=== PATIENT | female | born 1980 | race Caucasian/White ===

== ENCOUNTER 2016-11-10 10:32 | Emergency (ER) | payer OTHER ==
[~2016-11-10] VITALS: Ht 170.2 cm; Wt 86.4 kg
[2016-11-10 10:40] VITALS: BP 127/56; PULSE 93; RESP 12; O2SAT 100
--- NOTE | 2016-11-10 10:41 | ED.REPORT ---
HPI-Headache Date of Service Nov 10, 2016 ED Provider: Shae Drake MD The patient is a 36 year old female w/ a hx of lupus who presents to the ED via EMS from due to a migraine, onset 2100 yesterday. She was taking a walk when the headache began and she was barely able to walk home. Her headache was a 10/ 10 at onset and is currently a 8/10. It is located on the left side of her head behind her eye and radiates into her neck and back of head. Associated symptoms include nausea, vomiting, blurred vision bilateral, extremity pain she attributes to lupus, and shakes. The patient is tearful and photophobic at the ED and states that she has, "never had a migraine like this before." She denies fevers and chills. Nursing Notes Stated Complaint: HEADACHE Chief Complaint: Neuro Symptoms/ Deficits Nursing Notes Reviewed: Yes Allergies: Coded Allergies: cephalexin (Verified Allergy, Unknown, 11/10/16) General Time Seen by MD: 10:40 Chief Complaint Migraine headache Hx Obtained From: Patient Arrived By: Ambulance Sudden in Onset?: Yes Onset Occurred: 13 - 16 hours ago Context of Onset: Exercise (walking) Symptom Duration: Since onset Location: : Frontal left: Occipital left Quality: Burning, Painful Radiation: : Neck, left lateral Severity: Current: Pain level 8 out of 10 Severity: Maximum: Pain level 10 out of 10 Associated with: Reports: Nausea, Vomiting, Weakness Recent Healthcare: Recent doctor visit, Recent hospitalization Similar Sx Previous: Yes Past Medical History Past Medical History migraines lupus Past Surgical History denies Smoking History Unknown if Ever Smoker Social History Other Social History: Local resident Ambulatory Status Independent Review of Systems Constitutional: Denies: Chills, Fever Eyes: Reports: Blurred bilateral, Denies: Photophobia GI: Reports: Nausea, Vomiting, Denies: Abdominal pain Musculoskeletal: Denies: Back pain, Extremity pain, Joint pain, Neck pain Neurologic: Reports: Headache, Shaking, Denies: Change LOC Complete sys rev & neg: except as marked. Cardiovascular: Denies: Chest pain Physical Exam Physical Exam Notes: Initial Vital Signs Vital Signs (First) Date Time Temp Pulse Resp B/P Pulse Ox O2 Delivery O2 Flow Rate FiO2 11/10/16 10:40 36.5 93 12 127/56 100 11/10/16 12:40 Room Air Initial VS: Reviewed, Vital signs normal General/Constitutional: Awake Distress / Hydration: Positive: Distress mild Behavior: Positive: Anxious, Tearful Head / Eyes: Normocephalic, PERRL, EOMI Neck: No meningismus, No swelling general neck discomfort to palpation Neurologic: Oriented X3, Speech NL, No motor deficits, CN II - XII intact normal finger to nose sensation and strength intact no knuckle rigidity Abdomen: Soft, Non-tender Skin: Atraumatic, Warm, Dry Back: Full range of motion, Non-tender, No midline vertebral tend Upper Extremity / MS: Atraumatic, Inspection NL, Full range of motion, No deformity Lower Extremity / Pelvis / MS: Atraumatic, Inspection NL, No deformity Interpretation & Diagnostics Lab Results Interpretation Result Diagram: 11/10/16 1130 11/10/16 1130 Test 11/10/16 11:30 White Blood Count 5.5th/mm3 (3.8-10.1) Red Blood Count 4.30mil/mm3 (3.90-5.20) Hemoglobin 13.1g/dL (12.0-15.6) Hematocrit 40.1% (35.0-46.0) Mean Corpuscular Volume 93.3fL (81-100) Mean Corpuscular Hemoglobin 30.5pg (27.0-35.0) Mean Corpuscular Hemoglobin Concent 32.7% (32.0-37.0) Red Cell Distribution Width 11.9% (12.3-15.4) Platelet Count 225bil/L (150-400) Neutrophils (%) (Auto) 58.9% (40-74) Lymphocytes (%) (Auto) 31.3% (14-46) Monocytes (%) (Auto) 7.6% (4-12) Eosinophils (%) (Auto) 1.8% (0-5) Basophils (%) (Auto) 0.4% (0-3) Prothrombin Time 10.1sec (8.1-12.5) Prothromb Time International Ratio 0.95ratio Sodium Level 140mEq/L (134-144) Potassium Level 4.9mEq/L (3.5-5.2) Chloride Level 106mEq/L (97-108) Carbon Dioxide Level 23mmol/L (18-29) Blood Urea Nitrogen 6mg/dL (6-20) Creatinine 0.52mg/dL (0.57-1.00) Estimat Glomerular Filtration Rate 193mL/min (>59) Glucose Level 91mg/dL (60-99) Calcium Level 9.3mg/dL (8.5-10.1) Magnesium Level 1.9mg/dL (1.6-2.6) Hold Lacy Top Tube Received (Received) CT Head Interpretation IMPRESSION: Negative head CT. No acute intracranial process is evident. Dictated by: Jesus Olsen M.D. on 11/10/2016 at 11:29 Approved by: Jesus Olsen M.D. on 11/10/2016 at 11:30 Study: Head CT no contrast Interpretation / Wet Read by: Interpret - Radiologist Re-Eval/Medical Decision Med Decision/Clinical Course The patient presents with a new kind of headache, she has bilateral foot burning which she thinks may be related to her lupus. She had some onset of a severe headache, she is neurologically intact. CT was obtained and is negative , and residual lumbar puncture the patient refused. Risks and benefits were explained to her, she has had one performed prior to blood patch. I did explain to her that this could be serious if she did however she said she wanted to take that chance. As far as her headache she was given Compazine and Toradol with significant improvement in her headache. Additional differential diagnoses considered were intracranial hemorrhage, subarachnoid hemorrhage, meningitis, migraine, intracranial mass. Re-Evaluation/Progress : Time of Eval: 13:41 )( Patient Status: Condition improved, Pain improved Re-Evaluation/Progress Note: Pt rechecked. Her pain is now at a 5/10. She refuses a lumbar puncture. Risks were explained. Pt understands and still does not wish to proceed with the puncture. She requests anti-anxiety medicine. Counseled Regarding: Diagnosis, Lab results, Need for follow-up, When/why to return to ED Discharge & Departure Impression: Primary Impression: Migraine Migraine type: unspecified Status migrainosus presence: without status migrainosus Intractability: not intractable Qualified Code: G43.909 - Migraine, unspecified, not intractable, without status migrainosus Disposition: Home Discharge Condition All VS Reviewed: Yes Condition: Stable Patient Instructions: Migraine Headache (ED) Additional Instructions: Thank you for entrusting us with your care today. There were no emergent causes for your symptoms. Use Tylenol and Ibuprofen as needed for pain. Return to the Emergency Department if you experience any new or worsening symptoms. I hope you feel better soon! Referrals: Jia Bland MD (PCP) Scribe Attestation Portion of this note were transcribed by Blaire Fontaine. I, Dr. Drake , personally performed the history, physical exam, and medical decision-making: I reviewed and confirmed the accuracy for the information in the transcribed note. Signed by: myah Yoo, 11/10/16 1500 copies to: Jia Bland MD, Jena M MD Nov 10, 2016 10:41 Blaire Fontaine Nov 10, 2016 10:55
[2016-11-10] MEDS ORDERED: 0.9% Sodium Chloride 1,000 ML IV ONE (11:00)
[2016-11-10] MEDS ORDERED: ProchlorPERazine 5 mg/mL 2 mL Inj IVPUSH ONE (11:00)
[2016-11-10 11:38] LABS: BASOPHILS % (AUTO) 0.4 % (0-3); EOSINOPHILS % (AUTO) 1.8 % (0-5); MONOCYTES % (AUTO) 7.6 % (4-12); Mean Corpuscular Hemoglobin 30.5 pg (27.0-35.0); Mean Corpuscular Volume 93.3 fL (81-100); NEUTROPHILS % (AUTO) 58.9 % (40-74); Platelet Count 225 bil/L (150-400)
[2016-11-10 11:39] VITALS: BP 120/56; PULSE 82; RESP 16; O2SAT 100
[2016-11-10 11:53] LABS: INR 0.95 ratio
[2016-11-10 12:01] LABS: Magnesium 1.9 mg/dL (1.6-2.6)
--- NOTE | 2016-11-10 12:31 | DRSVH ---
PROCEDURE: CT BRAIN WITHOUT CONTRAST ([id number]) INDICATIONS: new headache TECHNIQUE: Noncontrast 4.5 mm thick angled axial sections acquired from the foramen magnum to the vertex, with c oronal reformats. COMPARISON: [facility], CT, BRAIN W/O CONTRAST, 01/29/2010, 12:15. FINDINGS: Image quality: Diagnostic. CSF spaces: Basal cisterns are patent. No extra-axial fluid collections. Ventricles are normal in size and shape. Brain: No midline shift. No intracranial masses or hemorrhage. Santiago-white matter interface is norm al. Skull and face: Calvarium and visualized facial bones are intact, without suspicious lesions. Sinuses: Visualized sinuses and mastoids are clear. IMPRESSION: Negative head CT. No acute intracranial process is evident. Dictated by: Jesus Olsen M.D. on 11/10/2016 at 11:29 Approved by: Jesus Olsen M.D. on 11/10/2016 at 11:30
[2016-11-10 12:40] VITALS: BP 127/54; PULSE 94; RESP 22; O2SAT 95
[2016-11-10] MEDS ORDERED: Ketorolac 15 mg/mL Inj IVPUSH ONE (13:40)
[2016-11-10 14:34] VITALS: BP 97/44; PULSE 82; RESP 19; O2SAT 98
[2016-11-10 14:52] VITALS: BP 101/49; PULSE 84; RESP 14; O2SAT 97
== END 2016-11-10 14:53 | disposition home or self-care (01) ==
LOC: SED 10:32
DX: G43.909 Migraine, unspecified, not intractable, without status migrainosus (principal); R53.1 Weakness; M32.9 Systemic lupus erythematosus, unspecified; Z88.1 Allergy status to other antibiotic agents
CPT/HCPCS: 36415; 70450; 80048; 83735; 85025; 85610; 96361; 96374; 96375; 96376; 99285; J0780; J1200; J1885; J7030